=== PATIENT | female | born 1985 | race Caucasian/White ===

== ENCOUNTER 2017-10-10 10:14 | Emergency (ER) | payer MEDICAID ==
[~2017-10-10] VITALS: Ht 154.9 cm; Wt 77.1 kg
[2017-10-10 10:16] VITALS: BP_SYST 137
--- NOTE | 2017-10-10 10:21 | NUR ---
Pt placed to ER bed 05, report given to GRACE Godfrey.
--- NOTE | 2017-10-10 10:27 | NUR ---
Patient is awake, alert, and oriented. She is complaining of left foot pain status post fall this morning. Patient reports throat surgery in 2012, denies other medical history. No s/s of distress noted.
--- NOTE | 2017-10-10 10:38 | NUR ---
ER Dr. Chase at bedside examining patient.
[2017-10-10 11:24] VITALS: BP_SYST 130
--- NOTE | 2017-10-10 11:26 | NUR ---
Patient given written and verbal discharge instructions and verbalizes understanding. ER MD discussed with patient the results and treatment provided. Patient in stable condition. ID arm band removed. Rx of toradol, naproxen given. Patient educated on pain management and to follow up with PMD. Pain Scale 4/10, patient states it is within tolerable limits. Opportunity for questions provided and answered. Medication side effect fact sheet provided.
== END 2017-10-10 11:24 | disposition home or self-care (01) ==
LOC: SED 10:14
DX: S93.602A Unspecified sprain of left foot, initial encounter (principal); R03.0 Elevated blood-pressure reading, without diagnosis of hypertension; W01.0XXA Fall on same level from slipping, tripping and stumbling without subsequent striking against object, initial encounter; Y93.89 Activity, other specified; Y92.89 Other specified places as the place of occurrence of the external cause; Y99.8 Other external cause status
CPT/HCPCS: 99284